=== PATIENT | female | born 1945 | race Caucasian/White ===

== ENCOUNTER 2023-02-02 11:54 | Emergency (ER) | payer MEDICARE, SELFPAY ==
[2023-02-02 11:54] VITALS: BP 174/93; PULSE 60; RESP 18; TEMP 36.7; O2SAT 96; BMI 18.8
--- NOTE | 2023-02-02 11:57 | XR_ITS ---
WS: [id number] Portable AP upright chest, 02/02/2023 Clinical Data: chest pain Comparison: None. Findings: No nodules, masses or effusions are seen. There are are interstitial changes throughout the lungs which probably represent chronic interstitial fibrosis. Less likely the interstitial change ma y represent chronic pneumonia or unusual pulmonary edema. The heart is normal. The pulmonary vascular ity is not increased. No pneumothorax is seen. The aortic arch and descending thoracic aorta show tor tuosity. Monitor leads are on the chest wall. The diaphragms are flattened. Impression: 1. Interstitial change throughout both lungs which probably represent chronic interstitial lung disea se. 2. Atherosclerosis and hyperinflation.
--- NOTE | 2023-02-02 11:58 | ECG_ITS ---
[facility] Test Date: 2023-02-02 Pat Name: Sonam Urena Department: Room: Gender: Female Study Coordinator: : 1945 Requested By: Seamus Guillen Order Number: [id number] Jamee MD: Adrien Banegas M.D. Measurements Intervals [place] Rate: 58 P: 30 [place]: 181 QRS: -46 QRSD: 137 T: 49 QT: 426 QTc: 421 Interpretive Statements SINUS BRADYCARDIA RIGHT BUNDLE BRANCH BLOCK [120+ ms QRS DURATION, UPRIGHT V1, 40+ ms S IN I/aVL/V4/V5/V6] LEFT ANTERIOR FASCICULAR BLOCK [QRS AXIS <= -45, QR IN I, RS IN II] VOLTAGE CRITERIA FOR LVH [MEETS CRITERIA IN ONE OF: R(aVL), S(V1), R(V5), R(V5/V6)+S(V1)] POSSIBLE SEPTAL MYOCARDIAL INFARCTION , PROBABLY OLD [30 ms Q WAVE IN V1/V2] No previous ECG available for comparison Electronically Signed On 02-02-2023 16:37:13 MANAGER SHELL by Adrien Banegas M.D. [id number]
--- NOTE | 2023-02-02 12:04 | W.ED.CHESTPA ---
HPI - Chest Pain General: Chief Complaint: Chest Pain Stated Complaint: chest pain Time Seen by Provider: 02/02/23 11:55 Source: patient Mode of arrival: ambulatory History of Present Illness: 77-year-old female with a history of hypertension presents emergency room with elevated blood pressure complain of chest discomfort chest comfort came on while she was at rest and resolved spontaneously she states she still has mild chest discomfort. She denies difficulty speech vision swallowing or gait. No radiation of the chest discomfort in the neck or arms. No significant shortness of breath with it. She is intermittently had chest discomfort and elevated blood pressure for the last several days. She had fallen recently had a compression fracture in her back and was hospitalized for period of time. She is currently getting home health. She has no known history of coronary artery disease. MD complaint: chest pain Onset (ago): day(s) (3) Timing of current episode: episodic Prior episodes: Yes Onset: during rest Pain location: substernal Pain radiation: none Severity: mild Quality: sharp Associated symptoms: Deny abdominal pain, diaphoresis, dyspnea, fever(s), leg edema, nausea, palpitations, sense of impending doom, syncope, vomiting or other Treatment prior to arrival: aspirin and nitroglycerin Review of Systems Const: Denies: fever(s), chills or diaphoresis Card: Denies: chest pain, palpitations or syncope Resp: Denies: dyspnea GI: Denies: abdominal pain, nausea or vomiting : Denies: dysuria, urinary frequency or urinary urgency Musc: Denies: neck pain or back pain Skin/Breast: Denies: rash Physical Exam Const: GENERAL APPEARANCE: cooperative and comfortable ORIENTATION/CONSCIOUSNESS: Yes awake, Yes oriented to person, Yes oriented to place and Yes oriented to time HENMT: COMMON NORMALS: normocephalic, atraumatic and hearing grossly normal bilaterally HEAD & SCALP: normocephalic and atraumatic Resp: COMMON NORMALS: normal respiratory effort, No retractions, No use of accessory muscles and clear to auscultation bilaterally AUSCULTATION: clear to auscultation bilaterally Cardio: COMMON NORMALS: regular rate, regular rhythm and No murmurs present (Cardio) RATE: regular rate RHYTHM: regular rhythm GI: COMMON NORMALS: Soft to palpation and No hepatosplenomegaly present AUSCULTATION: Yes normoactive bowel sounds PALPATION: Yes Soft to palpation, No Tenderness to palpation present (GI), No Guarding due to palpation present (GI) and Yes No hepatosplenomegaly present Extremity: COMMON NORMALS: normal to inspection, capillary refill normal, no clubbing, cyanosis or edema, no calf tenderness and no pedal edema Neuro: SENSORIUM/ORIENTATION: Yes oriented to person, Yes oriented to place and Yes oriented to time Skin: COMMON NORMALS: no rashes or lesions noted GENERAL SKIN EXAM: no rashes or lesions noted Course Vital Signs: Vital signs: Vital Signs Temperature 98.0 F 02/02/23 11:54 Pulse Rate 53 L 02/02/23 15:58 Respiratory Rate 18 02/02/23 15:58 Blood Pressure 151/97 02/02/23 15:58 Pulse Oximetry 98 02/02/23 15:58 Oxygen Delivery Me thod Room Air 02/02/23 14:29 MDM - Chest Pain Medical Decision Making Blood pressure improved. No further chest pain cardiac enzymes negative EKG does not show any acute ST changes. Discharge patient home I had isosorbide mononitrate 30 mg once daily baby aspirin daily set up outpatient Lexiscan sestamibi stress test follow-up with primary care doctor within a week to reevaluate blood pressure and again after stress test is completed return if has further problems. Medical Records I reviewed the patient's medical records. Lab Data I reviewed the patient's lab results. 02/02/23 12:16 02/02/23 12:16 Laboratory Results WBC 3.17 10^3/uL (3.29-11.43) L 02/02/23 12:16 RBC 3.44 10^6/uL (3.85-5.65) L 02/02/23 12:16 Hgb 10.90 g/dL (11.27-16.99) L 02/02/23 12:16 Hct 33.7 % (36-47) L 02/02/23 12:16 MCV 98.0 fl (85-98) 02/02/23 12:16 MCH 31.7 pg (27-33) 02/02/23 12:16 MCHC 32.3 g/dL (30-55) 02/02/23 12:16 RDW 12.1 % (12.1-15.1) 02/02/23 12:16 Plt Count 141 10^3/cmm (157-399) L 02/02/23 12:16 MPV 8.9 fL (7.4-10.4) 02/02/23 12:16 Neut % (Auto) 44.7 % 02/02/23 12:16 Lymph % (Auto) 46.7 % 02/02/23 12:16 Burnett % (Auto) 5.4 % 02/02/23 12:16 Eos % (Auto) 1.6 % 02/02/23 12:16 Baso % (Auto) 1.6 % 02/02/23 12:16 Neut # (Auto) 1.42 10^3/uL (1.8-7.7) L 02/02/23 12:16 Lymph # (Auto) 1.5 10^3/uL (0.8-4.8) 02/02/23 12:16 Burnett # (Auto) 0.2 10^3/uL (0.2-0.9) 02/02/23 12:16 Eos # (Auto) 0.1 10^3/uL (0.0-0.8) 02/02/23 12:16 Baso # (Auto) 0.1 10^3/uL (0.0-0.1) 02/02/23 12:16 Nucleated RBC % (auto) 0 % 02/02/23 12:16 Nucleated RBCs # 0.0 /100WBC 02/02/23 12:16 Sodium 143 mmol/L (136-145) 02/02/23 12:16 Potassium 3.1 mmol/L (3.5-5.1) L 02/02/23 12:16 Chloride 105 mmol/L (98-107) 02/02/23 12:16 Carbon Dioxide 29 mmol/L (22-29) 02/02/23 12:16 Anion Gap 12.1 (5-19) 02/02/23 12:16 BUN 7 mg/dL (8-23) L 02/02/23 12:16 Creatinine 0.5 mg/dL (0.5-0.9) 02/02/23 12:16 GFR Calculation Not Reportable 02/02/23 12:16 Glucose 88 mg/dL (65-115) 02/02/23 12:16 Calculated Osmolality 293 mOsm/kg (285-295) 02/02/23 12:16 Calcium 9.2 mg/dL (8.5-10.5) 02/02/23 12:16 Total Bilirubin 0.4 mg/dL (0.15-1.2) 02/02/23 12:16 AST 19 U/L (0-32) 02/02/23 12:16 ALT 37 U/L (0-33) H 02/02/23 12:16 Alkaline Phosphatase 117 U/L (35-105) H 02/02/23 12:16 Troponin T Baseline 13 ng/L (0-10) H 02/02/23 12:16 Troponin T 120 Minute 12.40 ng/L (0-10) H 02/02/23 14:12 Delta Troponin T -0.60 ABS# (0-10) L 02/02/23 14:12 Total Protein 6.4 g/dL (6.6-8.7) L 02/02/23 12:16 Albumin 3.9 g/dL (3.5-5.2) 02/02/23 12:16 Globulin 2.5 g/dL (1.3-4.6) 02/02/23 12:16 All radiology interpretation(s) finalized by discharge Discharge Plan Discharge Patient Disposition: Home Clinical Impression: Atypical chest pain, HTN (hypertension) Condition: Stable Prescriptions: New isosorbide mononitrate 30 mg tablet extended release 24 hr 30 mg PO DAILY Qty: 30 0RF aspirin 81 mg tablet,delayed release (DR/EC) 81 mg PO DAILY Qty: 30 0RF No Action hydralazine 10 mg tablet 10 mg PO QID tramadol 50 mg tablet 50 mg PO BID calcitonin (salmon) 200 unit/actuation spray,non-aerosol 1 spray intranasal DAILY gabapentin 100 mg capsule 100 mg PO TID albuterol sulfate 90 mcg/actuation HFA aerosol inhaler 2 puff INHALATION Q6H PRN (Reason: Shortness Of Breath Or Wheezing) memantine 10 mg tablet 10 mg PO BID cholecalciferol (vitamin D3) 25 mcg (1,000 unit) tablet 25 mcg PO DAILY Spiriva Respimat 2.5 mcg/actuation mist 2 puff INHALATION DAILY Linzess 72 mcg capsule 72 mcg PO QAM Discharge Orders: Discharge ED (Routine); Ordered 02/02/23 Ordered By: Seamus Mazariegos Discharge Diet: Usual diet Discharge Activity: Limit activity as instructed Patient Instructions: Opioid Safety, Pain Management Activity Restrictions/Additional Instructions: Thank you for choosing [facility] for your healthcare needs today. Please realize this is an emergency room and that we are providing you with a medical screening exam and this may not be complete and all inclusive of all the testing and or work up that you may need to determine your ailment or severity of your illness. It is very important that you follow up as instructed or that you return to the Emergency Department should you have concerns or if your condition changes or worsens in any way. You were seen today after an episode of chest discomfort and elevated blood pressure. Recommend he start isosorbide mononitrate 30 mg once daily and baby aspirin daily. Follow-up with your doctor within 1 week to reevaluate blood pressure. manager property will make arrangements for you to have a outpatient Lexiscan sestamibi stress test. Follow-up with your primary care doctor or the pastry finisher after the stress test is completed. Coding Level of Care Code ED Grain Origination Specialist for Lia Bazan
[2023-02-02 12:27] LABS: Basophils # 0.1 10^3/uL (0.0-0.1); Basophils % 1.6 %; Eosinophils # 0.1 10^3/uL (0.0-0.8); Eosinophils % 1.6 %; Hematocrit 33.7 % (36-47); Lymphocytes # 1.5 10^3/uL (0.8-4.8); Lymphocytes % 46.7 %; Mean Corpuscular HGB Conc 32.3 g/dL (30-55); Mean Corpuscular Hemoglobin 31.7 pg (27-33); Mean Platelet Volume 8.9 fL (7.4-10.4); Monocytes # 0.2 10^3/uL (0.2-0.9); Monocytes % 5.4 %; Neutrophils # 1.42 10^3/uL (1.8-7.7); Neutrophils % 44.7 %; Nucleated Red Blood Cells % 0 %; Platelet Count 141 10^3/cmm (157-399); Red Blood Count 3.44 10^6/uL (3.85-5.65); Red Cell Distribution Width 12.1 % (12.1-15.1); White Blood Count 3.17 10^3/uL (3.29-11.43)
[2023-02-02] MEDS: amlodipine 5 mg Tablet PO (12:40)
[2023-02-02 12:48] LABS: Alanine Aminotransferase 37 U/L (0-33); Albumin Level 3.9 g/dL (3.5-5.2); Alkaline Phosphatase 117 U/L (35-105); Aspartate Amino Transferase 19 U/L (0-32); Blood Urea Nitrogen 7 mg/dL (8-23); Calcium 9.2 mg/dL (8.5-10.5); Carbon Dioxide 29 mmol/L (22-29); Chloride 105 mmol/L (98-107); Creatinine Clr Calc Pharmacy 56.3362; Globulin 2.5 g/dL (1.3-4.6); Glucose 88 mg/dL (65-115); Osmolality Calculated 293 mOsm/kg (285-295); Sodium 143 mmol/L (136-145); Total Bilirubin 0.4 mg/dL (0.15-1.2); Total Protein 6.4 g/dL (6.6-8.7)
[2023-02-02 12:50] LABS: Anion Gap 12.1 (5-19); Potassium 3.1 mmol/L (3.5-5.1)
[2023-02-02 12:51] VITALS: BP 163/80; PULSE 46; RESP 17; O2SAT 97
[2023-02-02 12:52] LABS: Troponin(5th) Baseline 13 ng/L (0-10)
[2023-02-02 12:59] VITALS: PULSE 44; RESP 17; O2SAT 97
--- NOTE | 2023-02-02 13:41 | ECG_ITS ---
[facility] Test Date: 2023-02-02 Pat Name: Sonam Urena Department: Room: Gender: Female Shaper Hand: : 1945 Requested By: Seamus Guillen Order Number: [id number] Jamee MD: Adrien Banegas M.D. Measurements Intervals [place] Rate: 43 P: 25 [place]: 139 QRS: -45 QRSD: 138 T: 42 QT: 457 QTc: 390 Interpretive Statements SINUS BRADYCARDIA RIGHT BUNDLE BRANCH BLOCK [120+ ms QRS DURATION, UPRIGHT V1, 40+ ms S IN I/aVL/V4/V5/V6] LEFT ANTERIOR FASCICULAR BLOCK [QRS AXIS <= -45, QR IN I, RS IN II] MODERATE VOLTAGE CRITERIA FOR LVH, CONSIDER NORMAL VARIANT [MEETS CRITERIA IN ONE OF: R(aVL), S(V1), R(V5), R(V5/V6)+S(V1)] POSSIBLE SEPTAL MYOCARDIAL INFARCTION , PROBABLY OLD [30 ms Q WAVE IN V1/V2] No previous ECG available for comparison Electronically Signed On 02-02-2023 16:37:49 REAL ESTATE TRANSACTION MANAGER by Adrien Banegas M.D. [id number]
[2023-02-02 14:29] VITALS: BP 175/73; PULSE 48; O2SAT 99
[2023-02-02 15:58] VITALS: BP 151/97; PULSE 53; RESP 18; O2SAT 98
--- NOTE | 2023-02-08 09:02 | DCPLANNER ---
fax sent to [facility] for establishment of PCP.
--- NOTE | 2023-02-08 09:15 | DCPLANNER ---
outpatient request form Lexiscan stress test-sent to centralized scheduling
== END 2023-02-02 16:01 | disposition home or self-care (01) ==
PROVIDERS: Emergency Provider Family Medicine
DX: R07.89 Other chest pain (principal); I10 Essential (primary) hypertension
CPT/HCPCS: 36415; 71045; 80053; 84484; 85025; 93005; 99285

== ENCOUNTER 2023-03-07 17:55 | Emergency (ER) | payer MEDICARE, SELFPAY ==
[2023-03-07 17:56] VITALS: BP 158/82; PULSE 66; TEMP 36.6; O2SAT 98; BMI 18.1
--- NOTE | 2023-03-07 17:57 | XRR_ITS ---
PROCEDURE INFORMATION: Exam: XR Chest Exam date and time: 03/07/2023 6:01 PM Age: 77 years old Clinical indication: Pain; Chest pressure; Additional info: Cp TECHNIQUE: Imaging protocol: Radiologic exam of the chest. Views: 1 view. COMPARISON: CR XR chest 1V portable [id number] 02/02/2023 12:08 PM FINDINGS: Lungs: Shallow inspiration. Diffuse interstitial opacities in both lungs with a peripheral predominance. This most likely represents fibrosis. No consolidation. Pleural spaces: Unremarkable. No pleural effusion. No pneumothorax. Heart/Mediastinum: The heart size is upper normal. Bones/joints: Unremarkable. XR/XR chest 1V portable [id number] IMPRESSION: 1. Allowing for shallow inspiration, no acute findings. 2. Interstitial opacities most likely represents chronic fibrosis.
--- NOTE | 2023-03-07 18:00 | ECG_ITS ---
[facility] Test Date: 2023-03-07 Pat Name: Sonam Urena Department: Room: Gender: Female Philosophy Lecturer: : 1945 Requested By: Hamzah Mjaano Order Number: [id number] Jamee MD: Adrien Banegas M.D. Measurements Intervals [place] Rate: 63 P: 46 [place]: 170 QRS: -43 QRSD: 135 T: 21 QT: 413 QTc: 425 Interpretive Statements SINUS RHYTHM LEFT AXIS DEVIATION [QRS AXIS < -30] RIGHT BUNDLE BRANCH BLOCK [120+ ms QRS DURATION, UPRIGHT V1, 40+ ms S IN I/aVL/V4/V5/V6] VOLTAGE CRITERIA FOR LVH [MEETS CRITERIA IN ONE OF: R(aVL), S(V1), R(V5), R(V5/V6)+S(V1)] Compared to ECG 02/02/2023 13:41:11 Left-axis deviation now present Sinus bradycardia no longer present Left anterior fascicular block no longer present Myocardial infarct finding no longer present Electronically Signed On 03-08-2023 8:21:05 MICROSOFT CRM DEVELOPER by Adrien Banegas M.D. [id number]
--- NOTE | 2023-03-07 18:03 | ED_ITS ---
HPI - Chest Pain 2 General: Chief Complaint: Chest Pain Stated Complaint: Chest pain Time Seen by Provider: 03/07/23 17:57 Source: patient and EMS Mode of arrival: EMS Limitations: no limitations History of Present Illness: 77-year-old female states she started gonzales ving chest pain little over an hour ago states it is very sharp in nature worse with movement of her arm and with palpation. She had taken nitro and aspirin with no relief. States pain is a 6 out of 10 currently denies any shortness of breath denies any diaphoresis denies any nausea. Associated symptoms: Deny abdominal pain, dyspnea, fever(s), nausea or vomiting Review of Systems 2 Const: Denies: fever(s), chills, body aches or change in appetite ENMT: Denies: throat pain or dental pain Card: Reports: chest pain Resp: Denies: dyspnea GI: Denies: abdominal pain, nausea, vomiting or diarrhea : Denies: dysuria Musc: Denies: neck pain or back pain Skin/Breast: Denies: rash Neuro: Denies: headache(s) Physical Exam 2 Const: COMMON NORMALS: no acute distress, patient oriented x3 and healthy appearing HENMT: COMMON NORMALS: normocephalic and atraumatic HEAD & SCALP: n ormocephalic and atraumatic Eye: COMMON NORMALS: Equal, round and reactive pupils present and EOMs intact bilaterally PUPIL: Yes Equal, round and reactive pupils present Neck/C-Spine: COMMON NORMALS: full ROM and supple Chest: COMMONS NORMALS: normal inspection of the chest OTHER: Point tender in the center of the chest reproduces her pain Resp: COMMON NORMALS: normal respiratory effort, No retractions, No use of accessory muscles and clear to auscultation bilaterally AUSCULTATION: clear to auscultation bilaterally Cardio: COMMON NORMALS: regular rate, regular rhythm and No murmurs present (Cardio) RATE: regular rate RHYTHM: regular rhythm GI: COMMON NORMALS: Normal to inspection, nondistended, normoactive bowel sounds present, Soft to palpation, non-tender and no masses PALPATION: Yes Soft to palpation Extremity: COMMON NORMALS: normal to inspection and full ROM Neuro: COMMON NORMALS: patient oriented x3, moves all extremities and no focal motor deficits Psych: COMMON NORMALS: mental status grossly normal, Normal thought process present and cooperative THOUGHT PROCESS: Normal thought process present Skin: COMMON NORMALS: no rashes or lesions noted and no wounds GENERAL SKIN EXAM: no rashes or lesions noted Course 2 Vital Signs: Vital signs: Vital Signs Temperature 98 F 03/07/23 17:56 Pulse Rate 117 H 03/07/23 20:20 Respiratory Rate 18 03/07/23 20:20 Blood Pressure 172/74 03/07/23 20:20 Pulse Oximetry 97 03/07/23 20:20 Oxygen Delivery Me thod Room Air 03/07/23 18:15 MDM - Chest Pain Medical Decision Making Patient presents for chest pains atypical in nature troponins x-ray EKG are normal likely chest wall pain she is point tender on exam she is stable for discharge she is to follow-up with PCP and return if worsening she understands agrees to plan. Medical Records I reviewed the patient's medical records. Lab Data I reviewed the patient's lab results. 03/07/23 18:20 03/07/23 18:20 Radiology Impressions Chest X-Ray 03/07/23 17:57 IMPRESSION: 1. Allowing for shallow inspiration, no acute findings. 2. Interstitial opacities most likely represents chronic fibrosis. Laboratory Results WBC 7.01 10^3/uL (3.29-11.43) 03/07/23 18:20 RBC 3.18 10^6/uL (3.85-5.65) L 03/07/23 18:20 Hgb 10.10 g/dL (11.27-16.99) L 03/07/23 18:20 Hct 32.1 % (36-47) L 03/07/23 18:20 MCV 100.9 fl (85-98) H 03/07/23 18:20 MCH 31.8 pg (27-33) 03/07/23 18:20 MCHC 31.5 g/dL (30-55) 03/07/23 18:20 RDW 12.4 % (12.1-15.1) 03/07/23 18:20 Plt Count 126 10^3/cmm (157-399) L 03/07/23 18:20 MPV 9.3 fL (7.4-10.4) 03/07/23 18:20 Neut % (Auto) 70.2 % 03/07/23 18:20 Lymph % (Auto) 20.8 % 03/07/23 18:20 Randolph % (Auto) 6.4 % 03/07/23 18:20 Eos % (Auto) 1.6 % 03/07/23 18:20 Baso % (Auto) 0.7 % 03/07/23 18:20 Neut # (Auto) 4.92 10^3/uL (1.8-7.7) 03/07/23 18:20 Lymph # (Auto) 1.5 10^3/uL (0.8-4.8) 03/07/23 18:20 Randolph # (Auto) 0.5 10^3/uL (0.2-0.9) 03/07/23 18:20 Eos # (Auto) 0.1 10^3/uL (0.0-0.8) 03/07/23 18:20 Baso # (Auto) 0.1 10^3/uL (0.0-0.1) 03/07/23 18:20 Nucleated RBC % (auto) 0 % 03/07/23 18:20 Nucleated RBCs # 0.0 /100WBC 03/07/23 18:20 PT 14.30 SECONDS (12.1-14.9) 03/07/23 18:20 INR 1.08 (0.8-1.2) 03/07/23 18:20 Sodium 144 mmol/L (136-145) 03/07/23 18:20 Potassium 3.0 mmol/L (3.5-5.1) L 03/07/23 18:20 Chloride 108 mmol/L (98-107) H 03/07/23 18:20 Carbon Dioxide 27 mmol/L (22-29) 03/07/23 18:20 Anion Gap 12.0 (5-19) 03/07/23 18:20 BUN 14 mg/dL (8-23) 03/07/23 18:20 Creatinine 0.6 mg/dL (0.5-0.9) 03/07/23 18:20 GFR Calculation Not Reportable 03/07/23 18:20 Glucose 102 mg/dL (65-115) 03/07/23 18:20 Calculated Osmolality 299 mOsm/kg (285-295) H 03/07/23 18:20 Calcium 9.1 mg/dL (8.5-10.5) 03/07/23 18:20 Total Bilirubin 0.2 mg/dL (0.15-1.2) 03/07/23 18:20 AST 14 U/L (0-32) 03/07/23 18:20 ALT 12 U/L (0-33) 03/07/23 18:20 Alkaline Phosphatase 63 U/L (35-105) 03/07/23 18:20 Troponin T Baseline 11 ng/L (0-10) H 03/07/23 18:20 Troponin T 120 Minute 11.09 ng/L (0-10) H 03/07/23 20:01 Delta Troponin T 0.09 ABS# (0-10) 03/07/23 20:01 Total Protein 6.2 g/dL (6.6-8.7) L 03/07/23 18:20 Albumin 4.0 g/dL (3.5-5.2) 03/07/23 18:20 Globulin 2.2 g/dL (1.3-4.6) 03/07/23 18:20 All radiology interpretation(s) finalized by discharge EKG Data EKG 1: I personally reviewed and interpreted this EKG as follows: EKG interpretation date: 03/07/23 EKG interpretation time: 18:00 Interpretation: nsr hr [address] elevation qrs 135 qtc 421 EKG 2: I personally reviewed and interpreted this EKG as follows: EKG interpretation date: 03/07/23 EKG interpretation time: 20:27 Interpretation: nsr hr [address] or t wave abnormalities qrs 144 qtc 438 Discharge Plan Discharge Patient Disposition: Home Clinical Impression: Chest pain Qualifiers: Chest pain type: unspecified Qualified Code(s): R07.9 - Chest pain, unspecified Condition: Stable Prescriptions: New hydrocodone-acetaminophen 5-325 mg tablet 1 tab PO Q6H PRN (Reason: pain) Qty: 14 0RF No Action hydralazine 10 mg tablet 10 mg PO QID tramadol 50 mg tablet 50 mg PO BID calcitonin (salmon) 200 unit/actuation spray,non-aerosol 1 spray intranasal DAILY gabapentin 100 mg capsule 100 mg PO TID albuterol sulfate 90 mcg/actuation HFA aerosol inhaler 2 puff INHALATION Q6H PRN (Reason: Shortness Of Breath Or Wheezing) memantine 10 mg tablet 10 mg PO BID cholecalciferol (vitamin D3) 25 mcg (1,000 unit) tablet 25 mcg PO DAILY Spiriva Respimat 2.5 mcg/actuation mist 2 puff INHALATION DAILY Linzess 72 mcg capsule 72 mcg PO QAM isosorbide mononitrate 30 mg tablet extended release 24 hr 30 mg PO DAILY Qty: 30 0RF aspirin 81 mg tablet,delayed release (DR/EC) 81 mg PO DAILY Qty: 30 0RF Discharge Orders: Discharge ED (Routine); Ordered 03/07/23 Ordered By: Hamzah Majano Discharge Diet: Advance as tolerated Discharge Activity: Resume usual activity Patient Instructions: Chest Pain (ED) Coding Level of Care Code ED Grinding Machine Operator Automatic for Lia Bazan
[2023-03-07 18:10] VITALS: BP 158/82; PULSE 67; RESP 17; O2SAT 97
[2023-03-07 18:15] VITALS: BP 158/82; PULSE 66; RESP 19; O2SAT 97
[2023-03-07] MEDS: morphine 4 mg/mL SDV 1 mL IVP (18:17)
[2023-03-07] MEDS: ondansetron 2 mg/ML SDV 2 mL 4 MG IVP (18:17)
[2023-03-07 18:20] VITALS: BP 158/82; PULSE 67; RESP 18; O2SAT 97
[2023-03-07 18:39] LABS: Basophils # 0.1 10^3/uL (0.0-0.1); Basophils % 0.7 %; Eosinophils # 0.1 10^3/uL (0.0-0.8); Eosinophils % 1.6 %; Hematocrit 32.1 % (36-47); Lymphocytes # 1.5 10^3/uL (0.8-4.8); Lymphocytes % 20.8 %; Mean Corpuscular HGB Conc 31.5 g/dL (30-55); Mean Corpuscular Hemoglobin 31.8 pg (27-33); Mean Corpuscular Volume 100.9 fl (85-98); Mean Platelet Volume 9.3 fL (7.4-10.4); Monocytes # 0.5 10^3/uL (0.2-0.9); Monocytes % 6.4 %; Neutrophils # 4.92 10^3/uL (1.8-7.7); Neutrophils % 70.2 %; Nucleated Red Blood Cells % 0 %; Platelet Count 126 10^3/cmm (157-399); Red Blood Count 3.18 10^6/uL (3.85-5.65); Red Cell Distribution Width 12.4 % (12.1-15.1); White Blood Count 7.01 10^3/uL (3.29-11.43)
[2023-03-07 18:47] LABS: Troponin(5th) Baseline 11 ng/L (0-10)
[2023-03-07 18:48] LABS: Alanine Aminotransferase 12 U/L (0-33); Alkaline Phosphatase 63 U/L (35-105); Aspartate Amino Transferase 14 U/L (0-32); Blood Urea Nitrogen 14 mg/dL (8-23); Calcium 9.1 mg/dL (8.5-10.5); Carbon Dioxide 27 mmol/L (22-29); Chloride 108 mmol/L (98-107); Globulin 2.2 g/dL (1.3-4.6); Glucose 102 mg/dL (65-115); Osmolality Calculated 299 mOsm/kg (285-295); Sodium 144 mmol/L (136-145); Total Bilirubin 0.2 mg/dL (0.15-1.2); Total Protein 6.2 g/dL (6.6-8.7)
[2023-03-07 19:16] LABS: INR 1.08 (0.8-1.2)
[2023-03-07 20:20] VITALS: BP 172/74; PULSE 117; RESP 18; O2SAT 97
--- NOTE | 2023-03-07 20:27 | ECG_ITS ---
[facility] Test Date: 2023-03-07 Pat Name: Sonam Urena Department: Room: Gender: Female Bag Bailer: : 1945 Requested By: Hamzah Majano Order Number: [id number] Jamee MD: Adrien Banegas M.D. Measurements Intervals [place] Rate: 60 P: 50 [place]: 180 QRS: -42 QRSD: 144 T: 26 QT: 438 QTc: 438 Interpretive Statements SINUS RHYTHM LEFT AXIS DEVIATION [QRS AXIS < -30] RIGHT BUNDLE BRANCH BLOCK [120+ ms QRS DURATION, UPRIGHT V1, 40+ ms S IN I/aVL/V4/V5/V6] Compared to ECG 03/07/2023 18:00:31 Left ventricular hypertrophy no longer present Electronically Signed On 03-08-2023 8:21:31 FILE KEEPER by Adrien Banegas M.D. [id number]
[2023-03-07 20:43] LABS: Troponin 5 2HR 11.09 ng/L (0-10); Troponin 5 2HR Delta 0.09 ABS# (0-10)
[2023-03-07 21:42] VITALS: BP 172/74; PULSE 117; RESP 18; TEMP 36.6; O2SAT 97
== END 2023-03-07 21:44 | disposition home or self-care (01) ==
PROVIDERS: Emergency Provider Emergency Medicine; PCP Internal Medicine
DX: R07.9 Chest pain, unspecified (principal); Z79.82 Long term (current) use of aspirin
CPT/HCPCS: 36415; 71045; 80053; 84484; 85025; 85610; 93005; 96374; 96375; 99285; J2270; J2405